=== PATIENT | male | born 1945 | race Caucasian/White ===

== ENCOUNTER 2019-10-20 16:41 | Emergency (ER) | payer MEDICARE ==
[~2019-10-20] VITALS: Ht 172.7 cm; Wt 85.0 kg
--- NOTE | 2019-10-20 17:10 | NUR ---
PT AMBULATORY TO ROOM FROM LOBBY.
--- NOTE | 2019-10-20 17:40 | NUR ---
PT PLACED ON ALL ROOM MONITORING. PT RATES DISCOMFORT OF INTERMITTENT NAUSEA AT 2/10 AT THIS TIME. PER , PT WITH INTERMITTENT CONFUSION, SUBJECTIVE F/C, BODY ACHES, N/V, SHAKING OF EXTREMITIES FOR 2-3 DAYS. PT STATES HE HAS NOT TAKEN NORMAL MEDICATIONS D/T FEAR OF VOMITING. PT AND HERE FROM OOT FOR CONVENTION.
[2019-10-20] MEDS ORDERED: ONDANSETRON 2MG/ML, 2ML IVPush ONE ×2 (18:00→19:30)
[2019-10-20] MEDS ORDERED: SODIUM CHLORIDE FLUSH 10ML SYR IVF ONE (18:00)
[2019-10-20 18:07] LABS: MEAN CORPUSCULAR HEMOGLOBIN 30.9 pg (27.5-34.5); MEAN CORPUSCULAR HGB CONC 34.4 g/dL (33.2-36.2); MEAN CORPUSCULAR VOLUME 89.9 fL (81-97); MEAN PLATELET VOLUME 8.5 fL (7.4-10.4); PLATELET COUNT 103 x10^3/uL (130-400); RED BLOOD COUNT 4.68 x10^6/uL (4.38-5.82); RED CELL DISTRIBUTION WIDTH 13.1 % (9.4-14.8)
[2019-10-20 18:13] LABS: ALANINE AMINOTRANSFERASE 465 U/L (12-78); ALBUMIN 3.2 g/dL (3.4-5.0); ANION GAP 7 mmol/L (5-15); CALCIUM 8.2 mg/dL (8.5-10.1); CHLORIDE 98 mmol/L (98-107); CREATININE 2.05 mg/dL (0.7-1.3)
[2019-10-20 18:16] LABS: ALKALINE PHOSPHATASE 96 U/L (45-117); TOTAL PROTEIN 6.3 g/dL (6.4-8.2)
[2019-10-20 18:17] LABS: CULTURE INDICATED? YES; MICROSCOPIC INDICATED
[2019-10-20 18:33] LABS: BASOPHILS # (AUTO) 0.01 x10^3/uL (0-0.1); BASOPHILS % (AUTO) 0 % (0-1); EOSINOPHILS % (AUTO) 0 % (1-7); LYMPHOCYTES # (AUTO) 0.26 x10^3/uL (1-3.4); LYMPHOCYTES % (AUTO) 3 % (22-44); MD SCAN; MONOCYTES # (AUTO) 0.52 x10^3/uL (0.2-0.8); MONOCYTES % (AUTO) 6 % (2-9); NEUTROPHILS # (AUTO) 8.58 x10^3/uL (1.8-6.8); NEUTROPHILS % (AUTO) 92 % (42-75)
--- NOTE | 2019-10-20 18:34 | NUR ---
RETURN FROM BREAK. PT RESTING COMFORTABLY, NAD. AWAITING URINE MICRO. CALL LIGHT WITHIN REACH, VSS.
[2019-10-20] MEDS ORDERED: ONDANSETRON 2MG/ML, 2ML ONE (18:51)
[2019-10-20] MEDS ORDERED: SODIUM CHLORIDE 0.9% 1,000ML IVBOLUS ONE (19:00)
--- NOTE | 2019-10-20 19:18 | NUR ---
PT TO US.
[2019-10-20] MEDS ORDERED: MORPHINE SULFATE 4 MG/ML, 1ML IVPush PRN (19:30)
--- NOTE | 2019-10-20 20:04 | NUR ---
US READ, PT FOR RECHECK.
--- NOTE | 2019-10-20 20:14 | NUR ---
DR WALLACE IN FOR REEVAL OF PT. PER PT, PAIN MINIMAL AND TENDER SLIGHTLY TO LOW ABDOMEN WITH PALPATION. NO NAUSEA AT THIS TIME. SATS DIPPED TO 88% WHILE PT SLEEPING. OXYGEN PLACED AT 2LITERS VIA NC. ADD ON ORDER CT.
--- NOTE | 2019-10-20 21:19 | NUR ---
RESIDENT IN TO SPEAK WITH PT ABOUT RESULTS.
[2019-10-20] MEDS ORDERED: METRONIDAZOLE PMX 500MG/100ML 100 ML IV ONE (21:30)
[2019-10-20] MEDS ORDERED: CIPROFLOXACIN 500 MG TABLET PO ONE (21:30)
[2019-10-20] MEDS ORDERED: CIPROFLOXACIN 500 MG TABLET ONE (21:39)
[2019-10-20] MEDS ORDERED: METRONIDAZOLE PMX 500MG/100ML 100 ML ONE (21:39)
--- NOTE | 2019-10-20 21:45 | NUR ---
FLAGYL AND CIPRO GIVEN PER ERP ORDER. PT TO BE DISCHARGED FOLLOWING MEDICATION INFUSION.
[2019-10-20 23:03] VITALS: BP 128/61
[2019-10-21] MEDS ORDERED: DONE5TAB52 PO (13:39)
[2019-10-21] MEDS ORDERED: METO-282 PO (13:45)
[2019-10-21] MEDS ORDERED: TRAZ-96 PO (13:45)
[2019-10-21] MEDS ORDERED: DULO60CA7 PO (13:45)
[2019-10-21] MEDS ORDERED: PANT40TA3 PO (13:45)
[2019-10-21] MEDS ORDERED: BENA40TA3 PO (13:45)
[2019-10-21] MEDS ORDERED: EZET10TA70 PO (13:45)
[2019-10-21] MEDS ORDERED: ROSU40TA PO (13:45)
== END 2019-10-20 23:17 | disposition home or self-care (01) ==
LOC: ED 20:38
DX: K57.32 Diverticulitis of large intestine without perforation or abscess without bleeding (principal); E80.6 Other disorders of bilirubin metabolism; N17.9 Acute kidney failure, unspecified; R74.0 Nonspecific elevation of levels of transaminase and lactic acid dehydrogenase [LDH]; I10 Essential (primary) hypertension; E78.5 Hyperlipidemia, unspecified; I25.10 Atherosclerotic heart disease of native coronary artery without angina pectoris; R11.2 Nausea with vomiting, unspecified; R10.33 Periumbilical pain; I45.10 Unspecified right bundle-branch block
CPT/HCPCS: 36415; 74176; 76700; 80053; 81001; 82140; 83690; 85025; 87086; 93005; 96361; 96365; 96375; 99284; J2405; J7030

== ENCOUNTER 2019-10-21 06:50 | Inpatient (IN) | payer MEDICARE ==
[~2019-10-21] VITALS: Ht 172.7 cm; Wt 87.3 kg
--- NOTE | 2019-10-21 07:15 | NUR ---
FIRST CONTACT WITH PT. PT C/O: "SHAKES AND FORHEAD SWEATING" since 4 am. DENIES ANY PAIN. CP. SOB, N/V/D, TRAUMA AND SYNCOPE. PT'S AOX4. RESPS EVEN AND UNLABORED. BP/SPO2 MONITORS IN PLACE. CALL LIGHT WITHIN REACH.
--- NOTE | 2019-10-21 08:17 | NUR ---
PT RESTING IN [facility]. PT'S AOX4. RESPS EVEN AND UNLABORED. BP/SPO2 MONITORS IN PLACE. CALL LIGHT WITHIN REACH.
[2019-10-21] MEDS ORDERED: SODIUM CHLORIDE FLUSH 10ML SYR IVF ONE (08:30)
[2019-10-21] MEDS ORDERED: HYDROmorphone 2 MG/ML, 1ML IVPush PRN (08:30)
[2019-10-21] MEDS ORDERED: ONDANSETRON 2MG/ML, 2ML IVPush ONE (08:30)
--- NOTE | 2019-10-21 08:42 | NUR ---
URINAL GIVEN PER PT'S REQUEST.
[2019-10-21] MEDS ORDERED: HYDROmorphone 1 MG/ML, 1ML INJ ONE (08:48)
[2019-10-21] MEDS ORDERED: ONDANSETRON 2MG/ML, 2ML ONE (08:48)
[2019-10-21] MEDS ORDERED: METRONIDAZOLE PMX 500MG/100ML 100 ML ONE (08:48)
[2019-10-21] MEDS ORDERED: METRONIDAZOLE PMX 500MG/100ML 100 ML IVPB ONE (09:00)
[2019-10-21] MEDS ORDERED: CEFOTETAN PMX 2GM/50ML 50 ML IV ONE (09:00)
--- NOTE | 2019-10-21 09:06 | NUR ---
PIV EST ON R AC. NO COMPLICATOIONS. PT TOLERATED WELL.
--- NOTE | 2019-10-21 09:07 | NUR ---
PT MEDICATED PER EMAR. PT TOLERATED WELL.
[2019-10-21 09:16] LABS: ALANINE AMINOTRANSFERASE 291 U/L (12-78); ALBUMIN 2.9 g/dL (3.4-5.0); ANION GAP 10 mmol/L (5-15); CALCIUM 8.1 mg/dL (8.5-10.1); CHLORIDE 103 mmol/L (98-107)
[2019-10-21 09:18] LABS: ALKALINE PHOSPHATASE 89 U/L (45-117); BILIRUBIN,TOTAL 2.6 mg/dL (0.2-1.0); TOTAL PROTEIN 5.9 g/dL (6.4-8.2)
[2019-10-21 09:19] LABS: MEAN CORPUSCULAR HEMOGLOBIN 30.3 pg (27.5-34.5); MEAN CORPUSCULAR HGB CONC 33.6 g/dL (33.2-36.2); MEAN CORPUSCULAR VOLUME 90.3 fL (81-97); MEAN PLATELET VOLUME 8.6 fL (7.4-10.4); PLATELET COUNT 97 x10^3/uL (130-400); RED BLOOD COUNT 4.59 x10^6/uL (4.38-5.82); RED CELL DISTRIBUTION WIDTH 12.6 % (9.4-14.8)
--- NOTE | 2019-10-21 09:32 | NUR ---
REPORT GIVEN TO DESMOND GAO. ALL QUESTIONS ANSWERED.
--- NOTE | 2019-10-21 10:02 | NUR ---
PT RESTING IN [facility]. PT'S AOX4. RESPS EVEN AND UNLABORED. BP/SPO2 MONITORS IN PLACE. CALL LIGHT WITHIN REACH.
--- NOTE | 2019-10-21 10:05 | NUR ---
ABX INFUSING AT THIS TIME AFTER BLOOD CULTURE X 2 TIMES. PT TOLERATED WELL.
[2019-10-21 10:25] LABS: MD YES
[2019-10-21 10:26] LABS: BAND#(MANUAL) 0.84 x10^3/uL; BANDS%(MANUAL) 11 % (0-7); LYMPHS% (MANUAL) 4 % (22-44); MONOS#(MANUAL) 0.23 x10^3/uL (0.3-2.7); MONOS% (MANUAL) 3 % (2-9); PMNS WITH VACUOLES 1+; SEG#(MANUAL) 6.23 x10^3/uL (1.8-6.8); SEGS% (MANUAL) 82 % (42-75)
[2019-10-21 10:30] LABS: <PLATELET ESTIMATE> DECREASED; <PLT MORPHOLOGY> NORMAL PLT MORPH; <RBC MORPHOLOGY> NORMAL
[2019-10-21 10:44] VITALS: BP 105/59
[2019-10-21] MEDS: SODIUM CHLORIDE 0.9% 1,000 ML IV SCH ×2 (11:28→23:01)
[2019-10-21] MEDS: CEFTRIAXONE PMX 2GM/50ML 50 ML IV SCH (11:28)
[2019-10-21] MEDS ORDERED: ONDANSETRON 2MG/ML, 2ML IVPush PRN (11:30)
[2019-10-21] MEDS ORDERED: MORPHINE SULFATE 4 MG/ML, 1ML IVPush PRN (11:30)
[2019-10-21] MEDS: METRONIDAZOLE PMX 500MG/100ML 100 ML IV SCH ×2 (12:08→19:53)
[2019-10-21 12:27] VITALS: BP 130/77
[2019-10-21] MEDS ORDERED: ACETAMINOPHEN 325 MG TABLET PO PRN (12:30)
[2019-10-21] MEDS ORDERED: hydrALAzine 20 MG/ML, 1ML IVPush PRN (12:30)
[2019-10-21] MEDS ORDERED: TEMAZEPAM 15 MG CAPSULE PO PRN (12:30)
[2019-10-21] MEDS: HEPARIN 5,000 UNITS/ML, 1ML SQ SCH ×2 (12:30→20:13)
[2019-10-21] MEDS: POTASSIUM PHOSPHATE 44 MEQ in SODIUM CHLORIDE 0.9% 500 ML IV SCH ×2 (13:20→21:52)
[2019-10-21] MEDS ORDERED: DONE5TAB52 PO (13:39)
[2019-10-21] MEDS ORDERED: TRAZ-96 PO (13:45)
[2019-10-21] MEDS ORDERED: METO-282 PO (13:45)
[2019-10-21] MEDS ORDERED: BENA40TA3 PO (13:45)
[2019-10-21] MEDS ORDERED: ROSU40TA PO (13:45)
[2019-10-21] MEDS ORDERED: DULO60CA7 PO (13:45)
[2019-10-21] MEDS ORDERED: PANT40TA3 PO (13:45)
[2019-10-21] MEDS ORDERED: EZET10TA70 PO (13:45)
[2019-10-21] MEDS: METOPROLOL TARTRATE 25 MG TAB PO SCH (17:09)
[2019-10-21 19:43] VITALS: BP 107/68
[2019-10-22 02:35] VITALS: BP 136/82
[2019-10-22] MEDS: METRONIDAZOLE PMX 500MG/100ML 100 ML IV SCH ×3 (03:52→18:37)
[2019-10-22] MEDS: HEPARIN 5,000 UNITS/ML, 1ML SQ SCH ×3 (04:44→20:04)
[2019-10-22] MEDS: METOPROLOL TARTRATE 25 MG TAB PO SCH ×2 (05:47→17:25)
[2019-10-22] MEDS: ASPIRIN 81 MG TABLET EC PO SCH (05:47)
[2019-10-22 06:04] LABS: ALANINE AMINOTRANSFERASE 189 U/L (12-78); ALBUMIN 2.5 g/dL (3.4-5.0); ANION GAP 8 mmol/L (5-15); CALCIUM 7.4 mg/dL (8.5-10.1); CHLORIDE 107 mmol/L (98-107); CREATININE 1.56 mg/dL (0.7-1.3); MEAN CORPUSCULAR HEMOGLOBIN 30.5 pg (27.5-34.5); MEAN CORPUSCULAR HGB CONC 33.5 g/dL (33.2-36.2); MEAN CORPUSCULAR VOLUME 91.1 fL (81-97); RED BLOOD COUNT 4.12 x10^6/uL (4.38-5.82); RED CELL DISTRIBUTION WIDTH 12.8 % (9.4-14.8)
[2019-10-22 06:06] LABS: ALKALINE PHOSPHATASE 72 U/L (45-117); BILIRUBIN,TOTAL 1.4 mg/dL (0.2-1.0); TOTAL PROTEIN 5.3 g/dL (6.4-8.2)
[2019-10-22 06:26] LABS: BASOPHILS % (AUTO) 0 % (0-1); EOSINOPHILS % (AUTO) 0 % (1-7); LYMPHOCYTES % (AUTO) 10 % (22-44); MD SCAN; MONOCYTES # (AUTO) 0.73 x10^3/uL (0.2-0.8); MONOCYTES % (AUTO) 12 % (2-9); NEUTROPHILS % (AUTO) 78 % (42-75); PLATELET COUNT 64 x10^3/uL (130-400)
[2019-10-22] MEDS: SODIUM CHLORIDE 0.9% 1,000 ML IV SCH ×2 (08:39→20:04)
[2019-10-22] MEDS: PANTOPRAZOLE 40 MG IV IVPush SCH (08:39)
[2019-10-22 08:42] VITALS: BP 143/77
[2019-10-22] MEDS: CEFTRIAXONE PMX 2GM/50ML 50 ML IV SCH (10:29)
[2019-10-22 15:49] VITALS: BP 120/73
[2019-10-22] MEDS: OXYcodone IR 5MG TABLET PO PRN (17:26)
[2019-10-22 20:12] VITALS: BP 131/81
[2019-10-23 03:38] VITALS: BP 141/84
[2019-10-23] MEDS: OXYcodone IR 5MG TABLET PO PRN ×2 (03:50→11:20)
[2019-10-23] MEDS: METRONIDAZOLE PMX 500MG/100ML 100 ML IV SCH (03:51)
[2019-10-23] MEDS: SODIUM CHLORIDE 0.9% 1,000 ML IV SCH (03:54)
[2019-10-23] MEDS: HEPARIN 5,000 UNITS/ML, 1ML SQ SCH (04:24)
[2019-10-23 06:03] LABS: ALBUMIN 2.4 g/dL (3.4-5.0); ANION GAP 7 mmol/L (5-15); CALCIUM 7.6 mg/dL (8.5-10.1); CHLORIDE 105 mmol/L (98-107)
[2019-10-23 06:06] LABS: ALANINE AMINOTRANSFERASE 129 U/L (12-78); ALKALINE PHOSPHATASE 65 U/L (45-117); BILIRUBIN,TOTAL 0.9 mg/dL (0.2-1.0); CREATININE 1.21 mg/dL (0.7-1.3); TOTAL PROTEIN 5.2 g/dL (6.4-8.2)
[2019-10-23] MEDS: ASPIRIN 81 MG TABLET EC PO SCH (06:08)
[2019-10-23] MEDS: METOPROLOL TARTRATE 25 MG TAB PO SCH (06:08)
[2019-10-23] MEDS ORDERED: MAGNESIUM SULFATE/D5W 100 ML IV ONE (08:00)
[2019-10-23] MEDS ORDERED: POTASSIUM PHOSPHATE 44 MEQ in SODIUM CHLORIDE 0.9% 500 ML IV ONE (09:00)
[2019-10-23 09:12] VITALS: BP 152/90
[2019-10-23] MEDS: PANTOPRAZOLE 40 MG IV IVPush SCH (09:19)
[2019-10-23] MEDS ORDERED: CEFD300C37 PO (09:56)
[2019-10-23] MEDS ORDERED: LACT1TAB13 PO (09:56)
[2019-10-23] MEDS ORDERED: ASPI81TA45 PO (09:56)
[2019-10-23] MEDS ORDERED: OXYC5TAB3 PO (09:56)
[2019-10-23] MEDS ORDERED: METR500T PO (09:56)
[2019-10-23] MEDS ORDERED: POLY17PO5 PO (09:56)
== END 2019-10-23 12:20 | disposition home or self-care (01) | DRG 871 ==
LOC: ED 08:16 → EDIP 08:39 → 3N 09:28 → DCLOUNGE 10-23 12:10
PROVIDERS: ADMIT Hospitalist; ATTEND Internal Medicine
DX: A41.9 Sepsis, unspecified organism (principal); N17.0 Acute kidney failure with tubular necrosis; K57.92 Diverticulitis of intestine, part unspecified, without perforation or abscess without bleeding; N39.0 Urinary tract infection, site not specified; E78.5 Hyperlipidemia, unspecified; E83.39 Other disorders of phosphorus metabolism; I10 Essential (primary) hypertension; I25.10 Atherosclerotic heart disease of native coronary artery without angina pectoris; K70.10 Alcoholic hepatitis without ascites; Z82.49 Family history of ischemic heart disease and other diseases of the circulatory system; Z87.891 Personal history of nicotine dependence; Z95.5 Presence of coronary angioplasty implant and graft; Z96.653 Presence of artificial knee joint, bilateral
CPT/HCPCS: 36415; 80053; 83605; 83735; 83880; 84100; 85025; 87040; 96374; 96375; G0378; J0696; J1170; J2405; C9113; J3490; J7030; J7040